=== PATIENT | female | born 1960 | race Caucasian/White ===

== ENCOUNTER 2019-01-30 19:02 | Emergency (ER) | payer OTHER ==
--- NOTE | 2019-01-30 20:20 | EDM.PDOC ---
ED HPI GENERAL MEDICAL PROBLEM - General Chief Complaint: General Stated Complaint: L ANKLE PAIN Time Seen by Provider: 01/30/19 19:39 Source of Information: Reports: Patient History Limitations: Reports: No Limitations - History of Present Illness INITIAL COMMENTS - FREE TEXT/NARRATIVE: Patient comes to ER with complaint of lateral ankle pain and pain across the top of her foot after rolling ankle while stepping over trash bags. [place] popping in the foot during incident. Able to bear weight but only partially. No other injuries. No numbness/tingling of foot. Happened just prior to arrival. Left Ankle Pain Score (Numeric/FACES): 5 - Related Data Allergies Allergy/AdvReac Type Severity Reaction Status Date / Time cephalexin monohydrate Allergy Anaphylactic Verified 01/30/19 19:10 [From Keflex] Shock desipramine Allergy Insomnia Verified 01/30/19 19:10 metronidazole [From Flagyl] Allergy Rash Verified 01/30/19 19:10 Metronidazole HCl Allergy Rash Verified 01/30/19 19:10 [From Flagyl] pregabalin [From Lyrica] Allergy Cannot Verified 01/30/19 19:10 Remember trazodone Allergy Insomnia Verified 01/30/19 19:10 venlafaxine HCl Allergy Cannot Verified 01/30/19 19:10 [From Effexor] Remember Home Meds: Home Meds Acetaminophen [Tylenol Extra Strength] 1 - 2 tab PO BID 01/30/19 [History] Levothyroxine [Synthroid] 100 mcg PO ACBREAKFAST 01/30/19 [History] Zolpidem [Ambien] 10 mg PO BEDTIME 01/30/19 [History] buPROPion [Wellbutrin] 75 mg PO DAILY 01/30/19 [History] traMADol [Ultram] 50 mg PO BID 01/30/19 [History] Past Medical History Musculoskeletal History: Reports: Fibromyalgia, Osteoarthritis Neurological History: Reports: Other (See Below) (intrinsic sleep disorder) Psychiatric History: Reports: Depression Endocrine/Metabolic History: Reports: Hypothyroidism Social & Family History - Tobacco Use Smoking Status *Q: Never Smoker - Caffeine Use Caffeine Use: Reports: Soda, Tea - Alcohol Use Alcohol Use History: Yes Alcohol Use Frequency: Rarely - Recreational Drug Use Recreational Drug Use: No Drug Use in Last 12 Months: No ED ROS GENERAL - Review of Systems Review Of Systems: ROS reveals no pertinent complaints other than HPI. ED EXAM, GENERAL - Physical Exam Exam: See Below Exam Limited By: No Limitations General Appearance: Alert, WD/WN, No Apparent Distress Eye Exam: Bilateral Eye: EOMI, PERRL Head: Atraumatic, Normocephalic Neck: Supple Respiratory/Chest: No Respiratory Distress Peripheral Pulses: 2+: Dorsalis Pedis (L) Extremities: Normal Range of Motion, Other (mild swelling over lateral ankle. Tender at site of swelling and mild tenderness over the top of the foot proximally. Foot otherwise nontender. ABle to flex/extend/invert/nunu affected left ankle. NVI. ) Neurological: Alert, Oriented, Normal Cognition Psychiatric: Normal Affect, Normal Mood Skin Exam: Warm, Dry, Intact, Normal Color. No: Ecchymosis, Erythema, Increased Warmth Course - Vital Signs Last Recorded V/S: Last Vital Signs Temp 36.4 C 01/30/19 19:02 Pulse 90 01/30/19 19:25 Resp 16 01/30/19 19:15 BP 136/92 H 01/30/19 19:25 Pulse Ox 100 01/30/19 19:02 - Orders/Labs/Meds Orders: Active Orders 24 hr Category Date Time Status Ankle 2V Lt [CR] Stat Exams 01/30/19 19:56 Taken Foot Comp Min 3V Lt [CR] Stat Exams 01/30/19 19:29 Taken - Radiology Interpretation Free Text/Narrative:: Appears to have small avulsion noted lateral malleolus. - Re-Assessments/Exams Free Text/Narrative Re-Assessment/Exam: 01/30/19 20:28 Suspect BP elevated due to discomfort and needing to come to ER. She denies history of HTN. Suspect small avulsion noted lateral malleolus, otherwise no other abnormalities noted of xray. Pending Radiology review. Patient has own crutches. Has OTC pain meds and Tramadol at home that she can use. Work slip given for . To follow up Saturday wit primary provider. Recommended seeing Ortho at walk-in clinic Saturday if pain does not significantly improve. Departure - Departure Time of Disposition: 20:17 Disposition: Home, Self-Care 01 Condition: Good Clinical Impression: Left ankle injury Qualifiers: Encounter type: initial encounter Qualified Code(s): S99.912A - Unspecified injury of left ankle, initial encounter - Discharge Information *PRESCRIPTION DRUG MONITORING PROGRAM REVIEWED*: Not Applicable *COPY OF PRESCRIPTION DRUG MONITORING REPORT IN PATIENT JASON: Not Applicable Instructions: Avulsion Fracture of the Foot Referrals: Leidy Carvalho NP [Primary Care Provider] - Forms: ED Department Discharge, ED Return to Work/School Form Additional Instructions: OK to take Ibuprofen or Tylenol or your Tramadol for pain. Ice/elevated. Wear splint for comfort and use crutches to avoid weightbearing over the weekend. If pain is not significantly improved by Saturday, follow up with either your regular doctor or walk-in Ortho for recheck and further work restrictions as needed. Otherwise follow up as needed for problems. - My Orders Last 24 Hours: My Active Orders 01/30/19 19:29 Foot Comp Min 3V Lt [CR] Stat 01/30/19 19:56 Ankle 2V Lt [CR] Stat - Assessment/Plan Last 24 Hours: My Active Orders 01/30/19 19:29 Foot Comp Min 3V Lt [CR] Stat 01/30/19 19:56 Ankle 2V Lt [CR] Stat
== END 2019-01-30 20:50 | disposition home or self-care (01) ==
LOC: LL.ED 19:02
DX: S99.912A Unspecified injury of left ankle, initial encounter (principal); M19.90 Unspecified osteoarthritis, unspecified site; E03.9 Hypothyroidism, unspecified; F32.9 Major depressive disorder, single episode, unspecified; Z79.899 Other long term (current) drug therapy; Z88.8 Allergy status to other drugs, medicaments and biological substances; Z88.1 Allergy status to other antibiotic agents; X50.1XXA Overexertion from prolonged static or awkward postures, initial encounter
CPT/HCPCS: 73600-LT; 73630-LT; 99283-25

== ENCOUNTER → 2019-06-17 | Outpatient (CLI) | payer OTHER | LOC: LL.CLIN 06-16 11:15 | PROVIDERS: ATTEND Orthopaedic Surgery | DX: Z01.818 Encounter for other preprocedural examination (principal); M25.562 Pain in left knee; Z96.651 Presence of right artificial knee joint | CPT/HCPCS: 73560-LT; 87641 ==